=== PATIENT | female | born 1980 | race Hispanic/Latino ===

== ENCOUNTER 2018-09-12 19:49 | Emergency (ER) | payer BC, OTHER ==
[~2018-09-12 19:49] MED LIST: FERS325 PO; HYDR-3965 PO
== END 2018-09-12 20:39 | disposition home or self-care (01) ==
LOC: EDH 19:49
DX: T22.211A Burn of second degree of right forearm, initial encounter (principal); T31.0 Burns involving less than 10% of body surface; X16.XXXA Contact with hot heating appliances, radiators and pipes, initial encounter; Y93.89 Activity, other specified; Y92.89 Other specified places as the place of occurrence of the external cause; Y99.8 Other external cause status
CPT/HCPCS: 16020